=== PATIENT | female | born 1940 | race Caucasian/White ===

== ENCOUNTER 2017-07-12 19:00 | Emergency (ER) | payer OTHER, MEDICARE ==
--- NOTE | 2017-07-12 19:35 | EDPHY ---
H & P Time Seen by Provider: 07/12/17 19:12 HPI/ROS: CHIEF COMPLAINT: Constipated HISTORY OF PRESENT ILLNESS: 76-year-old female presents with constipation. She has been on multiple antibiotics for acute bronchitis and she has been constipated over the last week. Last bowel movement was 3 days ago. Stool was quite hard. Since then she feels urge to have a bowel movement but has not been able. She took magnesium citrate and a Fleet's enema this morning. No other medications for constipation attempted. No abdominal pain. REVIEW OF SYSTEMS: Constitutional: No fever, no chills Eyes: No visual changes ENT: No sore throat Respiratory: no shortness of breath Cardiac: No chest pain Gastrointestinal: vomited x 1 this morning Genitourinary: no dysuria Musculoskeletal: No leg pain or swelling Skin: No rash Neurological: No headache, no weakness Psychiatric: No depression Past Medical/Surgical History: Depression Hypothyroidism Bronchitis Social History: Smoking Status: Never smoked Physical Exam: General Appearance: Alert, pleasant Eyes: Pupils equal and round, no conjunctival pallor ENT, Mouth: Mucous membranes moist Neck: Normal inspection Respiratory: Lungs are clear to auscultation Cardiovascular: Regular rate and rhythm Gastrointestinal: Abdomen is soft and nontender Rectal: No fecal impaction Neurological: A&O, nonfocal, normal gait Skin: Warm and dry, no rash Extremities: normal inspection Psychiatric: Mood and affect normal Constitutional: Initial Vital Signs Temperature (C) 37.0 C 07/12/17 19:06 Heart Rate 75 07/12/17 19:06 Respiratory Rate 16 07/12/17 19:06 O2 Sat (%) 96 07/12/17 19:06 O2 Delivery Mode Room Air Allergies/Adverse Reactions: Sulfa (Sulfonamide Antibiotics) Allergy (Verified 07/12/17 19:02) Home Medications: Medication Instructions Recorded Citalopram 07/12/17 Codeine Sulf 07/12/17 Doxycycline 100 mg Prepack#2 07/12/17 Levothyroxine 07/12/17 Metoprolol Succinate 07/12/17 Prednisone 07/12/17 traZODone 07/12/17 Medical Decision Making ED Course/Re-evaluation: Soapsuds enema given. Pt had a moderate BM, felt better. Ready for d/c home. Differential Diagnosis: includes though not limited to SBO, appy, cholecystitis, diverticulitis Departure - Departure Disposition: Home, Routine, Self-Care Clinical Impression: Constipation Qualifiers: Constipation type: drug induced constipation Qualified Code(s): K59.03 - Drug induced constipation Condition: Good Instructions: Constipation (ED), High Fiber Diet (ED) Additional Instructions: Drink plenty of fluids. Take magnesium citrate as directed if constipation persists. Referrals: Ernestina Mcclellan MD [Primary Care Provider] - 2-3 days, if not improved
[2017-07-12 20:38] VITALS: BP 141/82; PULSE 67; RESP 15; TEMP 98.2; O2SAT 95
== END 2017-07-12 20:36 | disposition home or self-care (01) ==
DX: K59.03 Drug induced constipation (principal)